=== PATIENT | male | born 1965 | race Caucasian/White ===

== ENCOUNTER 2017-04-09 10:28 | Inpatient (IN) ==
[2017-04-09 12:20] LABS: MANUAL DIFF NEEDED? NO
[2017-04-09 12:32] LABS: EOS# 0.12 X1000 (0.0-0.7); EOS% 0.9 % (0.0-10.0); HEMATOCRIT 42.6 % (42.0-52.0); HEMOGLOBIN 15.3 g/dL (14.0-18.0); IMM GRAN# 0.19 X1000 (0.0-0.04); IMM GRAN% 1.4 % (0.0-0.5); LYMPH# 4.21 X1000 (1.2-3.4); LYMPH% 31.2 % (20.5-51.1); MCH 29.7 PG (27-31); MCHC 35.9 g/dL (33-37); MCV 82.6 FL (81-99); MONO# 1.36 X1000 (0.11-0.59); MONO% 10.1 % (1.7-9.3); NEUT% 55.4 % (42.2-75.2); PLT 193 X1000 (130-400); RBC 5.16 XMIL (4.7-6.1)
[2017-04-09 12:47] LABS: AGAP 15; ALBUMIN 4.1 g/dL (3.5-5.0); ALKALINE PHOSPHATASE 126 U/L (32-122); BUN 16 mg/dL (8-22); CALCIUM 9.2 mg/dL (8.8-10.2); CHLORIDE 88 mmol/L (98-107); COSMO 269; GOT 54 U/L (10-34); GPT 120 U/L (10-44); POTASSIUM 4.4 mmol/L (3.5-5.1); SODIUM 128 mmol/L (136-145); TCO2 25 mmol/L (25-35); TOTAL BILIRUBIN 1.23 mg/dL (0.20-1.00); TOTAL PROTEIN 7.3 g/dL (6.3-8.3)
[2017-04-09] MEDS ORDERED: ASPIRIN PO ONE (13:31)
[2017-04-09] MEDS ORDERED: NS 1,000 ML IV ONE (13:31)
[2017-04-09 13:58] LABS: URINE CULTURE NEEDED? NO; URINE MICRO REVIEW NEEDED? NO; URINE SOURCE CLEAN CATCH
[2017-04-09 14:02] LABS: BILIRUBIN URINE NEGATIVE (NEGATIVE); BLOOD URINE NEGATIVE (NEGATIVE); COLOR YELLOW; GLUCOSE URINE >1000 mg/dL (NEGATIVE); LEUKOCYTES URINE NEGATIVE (NEGATIVE); NITRITE URINE NEGATIVE (NEGATIVE); PROTEIN URINE 30 mg/dL (NEGATIVE); TURBIDITY URINE CLEAR (CLEAR); UROBILINOGEN URINE 2 mg/dL (NORMAL)
[2017-04-09 14:03] LABS: UR EPITHELIAL CELLS <10 /HPF (<10); URINE BACTERIA NEGATIVE /HPF; URINE RBC <10 /HPF (<10); URINE WBC <10 /HPF (<10)
[2017-04-09 14:11] LABS: UR AMPHETAMINES QUAL NONE DETECTED (NONE DETECT); UR BARBITUATES QUAL NONE DETECTED (NONE DETECT); UR BENZODIAZEPIN QUAL NONE DETECTED (NONE DETECT); UR CANNABINOIDS QUAL NONE DETECTED (NONE DETECT); UR COCAINE QUAL NONE DETECTED (NONE DETECT); UR METHADONE QUAL NONE DETECTED (NONE DETECT); UR OPIATES QUAL NONE DETECTED (NONE DETECT); UR OXYCODONE QUAL NONE DETECTED (NONE DETECT); UR PCP QUAL NONE DETECTED (NONE DETECT)
--- NOTE | 2017-04-09 14:55 | PROVIDER DOCUMENTATION ---
This chart was entered by Irving Fritz Scribe, acting as scribe for Kevin Hebert MD. HPI-Syncope/Dizziness - General Chief Complaint: Dizziness Stated Complaint: DIZZINESS Time Seen by Provider: 04/09/17 10:54 Source: patient Allergies/Adverse Reactions: Patient Allergies Allergy/AdvReac Type Severity Reaction Status Date / Time No Known Allergies Allergy Verified 04/09/17 10:50 Home Medications: Home Medication List Medication Instructions Recorded Confirmed Last Taken Type Bisoprolol Fumarate/Hctz 1 each PO DAILY 04/04/17 04/09/17 04/08/17 07:00 History [Bisoprolol-Hctz 5-6.25 mg Tab] Glimepiride 4 mg PO BID CC 04/04/17 04/09/17 04/05/17 History Lisinopril/Hydrochlorothiazide 1 each PO DAILY 04/04/17 04/09/17 04/05/17 History [Lisinopril-Hctz 20-12.5 mg Tab] Lovastatin 40 mg PO DAILY 04/04/17 04/09/17 04/08/17 17:00 History Metformin [Glucophage] 1,000 mg PO BID 04/04/17 04/09/17 04/05/17 History - History of Present Illness-Syncope/Dizzy Nature of Presenting Problem: patient is a 52 yo M that presents with dizziness, headache, and off balance x 5 to 6 days. Denies fever/chills, cough, or n/v. recently dx with heat rash. No recent injury. No h/o AVM's or aneurysm. No difficulty seeing. Says that he has had difficulty concentrating. Has not had any difficulty swallowing and has not had any decrease in strength. No syncope or chest pain. Onset/Duration: reports: abrupt, 5 days ago, 6 days ago Timing: reports: still present - Dizziness Severity in ED: reports: mild, moderate Dizziness Related Current/Associated Symptoms: reports: lightheaded, dizzy, headache, off balance. denies: nausea/vomiting Modifying Factors: improves with: nothing Patient usually:: reports: walks without assistance Review of Systems - Adult - REVIEW OF SYSTEMS - ADULT Constitutional: reports: fatique. denies: chills, fever Eyes: reports: no symptoms reported Ears, Nose, Mouth & Throat: reports: hoarseness Cardiovascular: denies: chest pain, palpitations Respiratory: reports: no symptoms reported Gastrointestinal: denies: abdominal pain, nausea, vomiting Genitourinary: reports: no symptoms reported Musculoskeletal: denies: back pain, joint pain, neck pain Integumentary: reports: no symptoms reported Neurological: reports: dizziness/vertigo, headache/migraines, loss of balance Psychiatric: reports: no symptoms reported Endocrine: reports: no symptoms reported Hematologic/Lymphatic: reports: no symptoms reported Allergic/Immunologic: reports: no symptoms reported All Other Systems: Reviewed and Negative Past History - Adult - PAST MEDICAL HISTORY-ADULT Review of Records: reports: Old Records Reviewed, Nursing Assessment Review, Medications Reviewed Cardiovascular: reports: HTN, hyperlipidemia Endocrine/Immune: reports: Diabetes Diabetes controlled by:: Insulin Dependent - PRIOR SURGERIES/PROCEDURES Surgical/Procedure History: reports: orthopedic (extremity) - IMMUNIZATION STATUS Childhood Immunizations: See Nurse Assessment Flu Vaccine: See Nurse Assessment - FAMILY HISTORY Family History: reviewed, not pertinent - SOCIAL HISTORY Smoking: non-smoker Living Situation: family Physical Exam-General - PHYSICAL EXAM-ADULT Initial Vital Signs Reviewed: Yes - CONSTITUTIONAL General Appearance: alert, no apparent distress - EYES Eyes: PERRL/EOMI, pink conjunctivae - HEAD, EARS, NOSE, MOUTH & THROAT HENMT: normocephalic/atraumatic, moist mucous membranes, normal ENT inspection - NECK Neck: full range of motion, normal inspection - RESPIRATORY Respiratory: lungs clear, normal breath sounds, no respiratory distress, no accessory muscle use - CARDIOVASCULAR Cardiovascular: regular rate, rhythm, no edema - GASTROINTESTINAL (ABDOMEN) Abdominal Exam: normal bowel sounds, non tender, soft, no organomegaly - MUSCULOSKELETAL Extremity: normal range of motion, normal inspection - SKIN Integumentary: normal color, warm/dry - NEUROLOGIC Neurologic: 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, no motor/sensory deficits, other (NIHSS O , mild ataxia when ambulating.) - PSYCHIATRIC Psych/Mental Status: normal mood/affect, normal thought content, normal thought process, oriented x 3 Progress - PLAN OF CARE/RESULTS Progress/Plan/Lab Results: Vital Signs - 8 hr 04/09/17 10:46 Temperature 98.2 F Pulse Rate 69 Respiratory Rate 16 Blood Pressure 135/82 O2 Sat by Pulse Oximetry 100 Laboratory Results - last 24 hr 04/09/17 04/09/17 04/09/17 12:10 12:10 12:10 WBC 13.49 H RBC 5.16 Hgb 15.3 Hct 42.6 MCV 82.6 MCH 29.7 MCHC 35.9 RDW Std Deviation 12.0 Plt Count 193 MPV 12.0 H Immature Gran % (Auto) 1.4 H Neut % (Auto) 55.4 Lymph % (Auto) 31.2 [place] % (Auto) 10.1 H Eos % (Auto) 0.9 Baso % (Auto) 1.0 H Immature Gran # (Auto) 0.19 H Neut # (Auto) 7.47 H Lymph # (Auto) 4.21 H [place] # (Auto) 1.36 H Eos # (Auto) 0.12 Baso # (Auto) 0.14 Sodium 128 L Potassium 4.4 Chloride 88 L Carbon Dioxide 25 Anion Gap 15 BUN 16 Creatinine 1.1 Estimated GFR/1.73 m2 > 60 BUN/Creatinine Ratio 15 Glucose 289 H Calculated Osmolality 269 Calcium 9.2 Total Bilirubin 1.23 H AST 54 H ALT 120 H Alkaline Phosphatase 126 H Troponin T < 0.010 Total Protein 7.3 Albumin 4.1 Globulin 3.2 Albumin/Globulin Ratio 1.3 Orders Category Date Time Status HEAD W/O CONTRAST [CT] Stat Exams 04/09/17 11:58 Completed HEAD W/WO CONTRAST [CT] Routine Exams 04/09/17 Taken BLOOD CULTURE [BLDCUL] Stat Lab 04/09/17 13:41 Uncollected CBC WITH ELECTRONIC DIFF [HEME] Stat Lab 04/09/17 12:10 Completed COMPREHENSIVE METABOLIC PANEL [CHEM] Stat Lab 04/09/17 12:10 Completed TROPONIN T Stat Lab 04/09/17 12:[address] W/POSS RFLX CULT [URINALYSIS] Stat Lab 04/09/17 13:49 Ordered URINE DRUG SCREEN Stat Lab 04/09/17 13:49 Ordered 0.9% Sodium Chloride Inj [Ns] 1,000 ml Med 04/09/17 13:31 Active IV 150 mls/hr Aspirin Med 04/09/17 13:31 Discontinued 325 mg PO NOW ONE Jose-Mariola MARTI with hospitalist called [id number] returned called, hospitalist will like patient sent to [facility] Result Diagrams: 04/09/17 12:10 04/09/17 12:10 - EKG 1 Time of EKG reading by physician:: 10:40 EKG Read and Signed by:: Kevin Hebert EKG Interpretation (*Must complete 3 of following elements*): Normal Rate: 76 Rhythm: NSR [place]: normal QRS: normal ID Interval: normal ST Wave: normal - CT/MRI 1 CT Study: Head Impression: Abnormal CT Results: 4cm irregular area in R occipital lobe 2 CT Study: Head (w contrast) Impression: Abnormal CT Results: subacute infarct or resolving hematoma - CONSULTS/PCP/HOSPITALIST Notification #1 *Consult/PCP/Hospitalist*: Elvira and Dr. Kapoor Consult Disposition: other (Made aware of reason for consult and wanted [facility] Neuro to view image and help determine patient disposition. Spoke again to Elvira (physician community development specialist) 2:42 pm and made aware that I spoke with Neurosurgeon at [facility].) #2 Consult: Spoke with Dr. Moralez (Neurosurgeon) Time Discussed: 14:34 Consult Disposition: other (Dr. Moralez viewed CT brain images and agreed that lesion is and infarct and says that patient was able to be treated at [facility], agreed with ASA therapy.) Departure - Departure Date of Disposition Decision: 04/09/17 Time of Disposition Decision: 14:35 DIAGNOSIS: Acute cerebrovascular accident, Hyponatremia, Ataxia Disposition: HOME 01 Certified Medical Emergency: Emergent Condition: Stable Referrals and Follow-Ups: None,PCP [Clinical Support] - - Critical Care Note This patient required my direct & personal management of CC.: No This chart was documented by the indicated scribe, (Irving Fritz, Nila) and accurately reflects the services I performed and decisions made by me, Kevin Hebert MD, as attested by the provider's signature.
[2017-04-09] MEDS ORDERED: ZOFRAN IV PRN ×2 (15:49)
[2017-04-09] MEDS ORDERED: TYLENOL PO PRN (15:49)
[2017-04-09] MEDS: HUMULIN R SUBQ SCH ×2 (16:24→21:13)
[2017-04-09] MEDS: AMARYL PO SCH (16:24)
--- NOTE | 2017-04-09 16:38 | HISTORY AND PHYSICAL ---
PRIMARY CARE PROVIDER: Dr. Michael. Bradshaw. CHIEF COMPLAINT: Unsteady gait, dizziness, lethargy. HISTORY OF PRESENT ILLNESS: Mr. Rogers is a 52-year-old, male, who presents to the ED today with complaints of dizziness and unstable gait. He was last seen here on 04/04/2017 with also dizziness, complaint of fever, body aches and chills, and was initially told to take ibuprofen and go home. He reports that he obviously did not get better and went to [facility] first today for the same symptoms and was told to come here. In the ER, he had a CT of the head done which revealed a 4 cm irregular hypodense area in the right middle lobe which radiologists confirmed that it could be a recent infarct or recent hematoma. The patient's sodium level was found to be 128. He denied any nausea, vomiting, diarrhea, any more fever, body aches or chills. No numbness or tingling. He did not report any other headache, redness of his head 02/13. ER doctor did consult Dr. Toure at [facility], who looked at CT and suggested it was a subacute infarct, ischemic versus hematoma, and recommended aspirin therapy. He was given aspirin 325 mg p.o. in the ER. His UDS and UA were negative also in the ER. Upon physical assessment he was found to have mild ataxia; nystagmus; and left heminopsia. MRI scheduled tomorrow. PAST MEDICAL HISTORY: 1. Diabetes Mellitus Type II 2. Hypertension. 3. Hyperlipidemia. SURGICAL HISTORY: None. 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 He denies any alcohol and tobacco use or illicit drug use. FAMILY HISTORY: Mother with cancer; father with hemorrhagic stroke; sister with [place] and stroke; brother with cancer. REVIEW OF SYSTEMS: 12-point review of systems complaints as mentioned above in HPI. ALLERGIES: No known drug allergies. HOME MEDICATIONS: Metformin 1000 mg p.o. b.i.d., lovastatin 40 mg p.o. daily, lisinopril/hydrochlorothiazide 20/12.5, 1 tab p.o. daily, Amaryl 4 mg p.o. b.i.d., bisoprolol/hydrochlorothiazide 5/6.25 one tablet p.o. daily. PHYSICAL EXAMINATION: VITAL SIGNS: BP 135/82, T 98.2 degrees temp, 69 heart rate, 16 breaths on 100% room air. GENERAL: Mr. Rogers is a 52-year-old, male. Appears well- nourished. Can answer questions appropriately. HEENT: Atraumatic, normocephalic. Pupils equal, round, reactive to light. EOMS intact. Mild nystagmus noted. Mucous membranes are moist. NECK: Supple. No lymphadenopathy. Trachea midline. No JVD noted. CV: S1, S2. No carotid bruits. Regular rate and rhythm. No murmur, gallop or rub noted. RESPIRATORY: Lung sounds clear and equal throughout. Equal chest excursion. Nonlabored. No accessory muscle use. GI: Soft, nontender, nondistended in all 4 quadrants. Bowel sounds auscultated in all 4 quadrants. No abdominal bruits. NEURO: On exam, the patient was found to have mild hemianopsia on his left side. Also with his gait he was found to have mild ataxia. Alert, Oriented x 4. Followed commands. Sensation intact. Mild Ataxia. Speech clear. Face symmetric. MUSCULOSKELETAL: Muscle strength is equal throughout; 5/5. No deficit is noted there. EXTREMITIES: Dorsalis pedis and radial pulses +2. No clubbing, cyanosis, edema noted. SKIN: Warm, dry, intact. Body rash; possible petechia. No bruises or diaphoresis noted. LABS: White blood cell count 13, hemoglobin 15, hematocrit 42, platelets 193. Sodium 128, potassium 4.4, chloride 88, bicarbonate 25, BUN 16, hematocrit 51.1, glucose 289. IMAGIN. CT of the head with IV contrast revealed a 4 cm subacute infarct and ischemic versus hemorrhagic. 2. EKG was also done: Normal sinus rhythm, rate 76, QTc was 420. ASSESSMENT AND PLAN: 1. Right subacute occipital lobe infarct, ischemic versus hematoma. Magnetic resonance imaging and magnetic resonance angiogram of the brain and neck ordered. Dr. Dueñas has been consulted. The patient has risk factors that consist of diabetes, hypertension and a family history of cerebrovascular accident. 2. Hyponatremia. Sodium in the emergency room was 128. He was started on normal saline at 150 mL an hour. We will continue to monitor. 3. Hyperglycemia with blood sugar 289. We will order an A1c and continue his home medication regimen of metformin and Amaryl. 4. Transaminitis and hyperbilirubinemia secondary to dehydration possibly. Patient is receiving intravenous fluids. We will continue to monitor. 5. Deep vein thrombosis prophylaxis: Sequential compression devices. 6. Body rash noted. Inflammatory markers ordered. Dictated by KAIA Espinoza for Luis Caputo MD cc: KAIA Espinoza MD Michael Putman, MD pt examined, agree with above APENOT MTDD
[2017-04-09] MEDS ORDERED: PNEUMOVAX 23 IM ONE (18:00)
[2017-04-09] MEDS: GLUCOPHAGE PO SCH (21:13)
[2017-04-10 06:40] LABS: BASO% 0.5 % (0.0-0.8); EOS# 0.14 X1000 (0.0-0.7); EOS% 0.9 % (0.0-10.0); HEMATOCRIT 41.4 % (42.0-52.0); HEMOGLOBIN 14.5 g/dL (14.0-18.0); IMM GRAN# 0.16 X1000 (0.0-0.04); LYMPH# 4.26 X1000 (1.2-3.4); MANUAL DIFF NEEDED? YES; MCH 29.5 PG (27-31); MCV 84.1 FL (81-99); MONO% 8.9 % (1.7-9.3); NEUT% 61.7 % (42.2-75.2); PLT 213 X1000 (130-400); RBC 4.92 XMIL (4.7-6.1)
[2017-04-10 06:44] LABS: INR 1.06; PROTIME 11.2 Seconds (9.2-11.7); PTT 26.4 Seconds (22.0-36.0)
[2017-04-10 07:10] LABS: HEMOGLOBIN A1C 7.7 % (4.8-6.0)
[2017-04-10 07:12] LABS: FREE T4 1.47 ng/dL (0.93-1.70)
[2017-04-10 07:14] LABS: BANDS 1 % (0-1); EOS 1 % (1-10); LYMPHS 11 % (21-51); MONO 5 % (1-9)
[2017-04-10 07:19] LABS: AGAP 14; ALBUMIN 3.9 g/dL (3.5-5.0); ALKALINE PHOSPHATASE 123 U/L (32-122); BUN 14 mg/dL (8-22); CALCIUM 8.8 mg/dL (8.8-10.2); CHLORIDE 98 mmol/L (98-107); COSMO 274; GOT 45 U/L (10-34); GPT 104 U/L (10-44); POTASSIUM 4.9 mmol/L (3.5-5.1); SODIUM 136 mmol/L (136-145); TCO2 24 mmol/L (25-35); TOTAL BILIRUBIN 1.11 mg/dL (0.20-1.00); TOTAL PROTEIN 6.7 g/dL (6.3-8.3)
--- NOTE | 2017-04-10 07:20 | EKG Report ---
Test Performed on : 04/09/2017 10:40:44 AM Test Reason : No Order in [employer] Blood Pressure : / mmHG Vent. Rate : 076 BPM Atrial Rate : 076 BPM P-R Int : 126 ms QRS Dur : 086 ms QT Int : 420 ms P-R-T Axes : 033 012 039 degrees QTc Int : 472 ms Normal sinus rhythm. Normal ECG No previous ECGs available Unconfirmed Result
[2017-04-10] MEDS: HUMULIN R SUBQ SCH ×4 (09:00→21:55)
--- NOTE | 2017-04-10 09:36 | Diag Imaging Result Doc PS360 ---
MRI BRAIN W W/O CONTRAST - 04/10/2017 INDICATION: stroke COMPARISON: Head CT 04/09/2017 FINDINGS: There is a large area of restricted diffusion at the right posterior-medial occipital lobe, in the posterior cerebral artery territory. This exhibits heterogeneous hyperintensity, and some mass enlargement with effacement of sulci and mild deviation of the right side of the splenium of the corpus callosum, anteriorly. No abnormal contrast enhancement. No evidence of hemorrhage. There is a second, tiny area of restricted diffusion in the left cerebellar hemisphere. This is in a linear fashion. This does appear to be true restricted diffusion. This also does exhibit some minimal T2 and FLAIR hyperintensity. IMPRESSION: 1. Large, recent stroke in the right posterior cerebral artery territory. 2. Possible tiny accessory stroke in the left cerebellar hemisphere, also recent. 3. The patient's hospital physician was immediately paged with the results. Electronically signed by Ottoniel Kothari 04/10/2017 9:34 AM
[2017-04-10] MEDS: ASPIRIN PO SCH (09:57)
[2017-04-10] MEDS: AMARYL PO SCH ×2 (09:58→16:56)
[2017-04-10] MEDS: MEVACOR PO SCH (09:58)
[2017-04-10] MEDS: GLUCOPHAGE PO SCH ×2 (09:58→21:53)
--- NOTE | 2017-04-10 10:00 | Diag Imaging Result Doc PS360 ---
ANGIOGRAM/HEAD - 04/10/2017 INDICATION: cva TECHNIQUE: Axial CT images were obtained after administering intravenous contrast. Three-dimensional angiographic images were generated. A CT dose reduction protocol was used. COMPARISON: Head CT and MRI previously FINDINGS: There is a moderately large, very densely calcified focal plaque at the right vertebral artery just inside of the foramen magnum. Otherwise the vertebrobasilar artery system is normal. The right vertebral artery is actually dominant. The posterior cerebral arteries are patent with normal anatomy bilaterally. There is a complete [place]. The internal carotid arteries are grossly normal bilaterally, with the exception of a few small calcified plaques at the supraclinoid arteries bilaterally. The anterior and middle cerebral arteries are patent bilaterally. There are no unusual caliber changes to suggest vasculitis of the intracranial artery systems. IMPRESSION: There is a relatively large, densely calcified focal plaque at the right vertebral artery just inside of the foramen magnum. Otherwise, the exam is normal. Electronically signed by Ottoniel Kothari 04/10/2017 9:58 AM
--- NOTE | 2017-04-10 15:11 | CONSULTATION ---
DATE OF CONSULTATION: 04/10/2017 ROOM 379A HISTORY OF PRESENT ILLNESS: Mr. Rogers is 52 years old and there is MRI and CT evidence of a right occipital lesion consistent with subacute infarction. History from the patient is that he never had a stroke before. He felt bad about 8 days ago and he cannot describe that more precisely. He spent some of the day in bed. He had some cold sweats a few nights. He presented to the emergency room and believes he was told at one point temperature was 103 degrees and later 101. About 6 days ago he noticed some bumps over his limbs. A few days ago he developed tension discomfort across the forehead, not as bad as headaches he has had in the past. He reports no specific vision disturbance and he specifically denies loss of visual field. He has not noticed focal weakness or numbness in the limbs. He believes there was never unconsciousness or altered awareness. Workup includes CT scan of the head followed by brain MRI reported to show restricted diffusion in the right posteromedial occipital area. CT angiogram showed right vertebral plaque. Labs showed WBC count 13,000 and then 15,000 in the last few days. Blood sugars were 289 a few days ago and 133 today. He has mildly elevated liver enzymes. Urine drug screen was all negative. Sedimentation rate was 21. He has been afebrile. His systolic blood pressures were 120s to 140s yesterday, 100s to 120s today. He has past history of hypertension and diabetes mellitus. He takes his medicines regularly, by his report. He has not been taking antiplatelet medicine. He denies illicit drug use and he denies alcohol use. He reports an episode in his 20s when he lost 40 pounds in a short period of time but he does not believe a specific diagnosis was made then. PHYSICAL EXAMINATION: On examination, he is awake, alert, attentive, oriented, appropriate. Speech is not dysarthric. Language function is intact. Memory is good. Head and neck are unremarkable. There is no meningismus. He has left inferior quadrantanopsia. He made some mistakes counting fingers in the left superior quadrant. He has full right visual field. Extraocular movements are full. Facial sensation and motility are normal and symmetric. Gag is intact. Tongue is midline. Hearing is good. Shoulder shrug is equal. Strength is normal in the arms and legs. He did well on [id number] and [id number] testing bilaterally. He reports good pinprick and light touch appreciation symmetrically over the limbs. Proprioception is good at the great toe MTP joint bilaterally. Reflexes are 2+ at the wrists, 2+ at the knees, trace at the ankles. Plantar response is silent bilaterally. I did not test his gait. IMPRESSION: 1. Isolated left inferior quadrantanopsia. This is consistent with the right occipital lesion noted on imaging. He has risk factors for cerebrovascular ischemic problems including dyslipidemia, diabetes mellitus, hypertension. Although he is a relatively young man to have a stroke, that seems most likely the explanation for this event. 2. A report presenting with dizziness, not feeling well, fever a week ago is noted. That was accompanied by skin rash. He has been afebrile here and rash is resolving, by his report. Explanation for this is not clear to me. I do not think this has a primary [employer]AR[employer]ER correlation. However, I will order a PPD. Further plans will depend on his clinical course. 3. I would consider carotid imaging, not urgent. After workup, if the only finding is the right vertebral plaque noted on brain CTA today, I do not think we will have to change plans. I would continue daily aspirin, continue treating blood sugar and lipids aggressively, continue treating blood pressure cautiously or not at all. Thank you for asking me to see Mr. Rogers. cc: MD NANCI Dee III
[2017-04-10] MEDS ORDERED: TUBERSOL ID ONE (16:46)
--- NOTE | 2017-04-10 18:47 | Carotid Study ---
DATE: 04/09/2017 PROCEDURE: Carotid duplex imaging. REFERRING PHYSICIAN: Luis Caputo MD INTERPRETING PHYSICIAN: Carlos Smallwood MD TECH: [place] INDICATIONS: The patient has had a TIA. OBSERVED DATA RIGHT LEFT Brachial Blood Pressure Carotid Pulse Bruits: Carotid/Sub DIAGRAM OF ULTRASOUND IMAGING R L RIGHT INT EXT INT EXT LEFT Reilly (cm/s) Reilly (cm/s) Subclavian 94/0 Subclavian 112/0 CCA Proximal 105/20 CCA Proximal 82/12 CCA Distal 97/19 CCA Distal 79/17 Bulb 64/14 Bulb 67/12 ICA Proximal 49/15 ICA Proximal 55/14 ICA Mid 74/25 ICA Mid 66/19 ICA Distal 66/25 ICA Distal 80/26 ECA 103/12 ECA 91/8 Vertebral Antegrade, 52/16 Vertebral Antegrade, 37/9 ICA/CCA Ratio 0.7 ICA/CCA Ratio 1.0 % Stenosis 0-39 % Stenosis 0-39 FINDINGS: Minimal plaque noted on the right. PHYSICIAN INTERPRETATION: Minimal plaque in the right bulb. No plaque is noted on the left. No significant stenosis is present. There is antegrade vertebral flow bilaterally. cc: MD Luis Wild MD
[2017-04-11] MEDS: HUMULIN R SUBQ SCH ×3 (08:03→16:41)
[2017-04-11] MEDS: ASPIRIN PO SCH (08:36)
[2017-04-11] MEDS: GLUCOPHAGE PO SCH (08:36)
[2017-04-11] MEDS: MEVACOR PO SCH (08:36)
[2017-04-11] MEDS: AMARYL PO SCH ×2 (08:36→16:40)
--- NOTE | 2017-04-11 14:14 | PROGRESS NOTE ---
DATE: 04/11/2017 SUBJECTIVE: Mr. Rogers reports he is feeling better. He does not have any specific complaints. OBJECTIVE: On exam, he continues to have left inferior quadrantanopsia. His finger counting in the left superior field may be a little bit more consistent today than yesterday. There is no new focal neurologic finding. ASSESSMENT AND PLAN: Again, I encouraged him to be aggressive with management of his blood sugar, lipids, blood pressure. We might consider Ophthalmology evaluation and visual field testing electively. I do not have any new suggestion today. His carotid ultrasound showed no significant carotid or vertebral stenosis. The CT angiogram had raised question of right vertebral plaque, but I do not believe there is hemodynamically significant stenosis there, so I do not think we need to alter plans now. I believe antiplatelet management will be sufficient, in addition to attention to his other risk factors as above. Thanks for asking me to see Mr. Rogers. cc: Archana Dueñas III, MD
[2017-04-11 14:26] VITALS: BP 140/63
--- NOTE | 2017-04-11 16:09 | DISCHARGE SUMMARY ---
ADMISSION DATE: 04/09/2017 DISCHARGE DATE: 04/11/2017 DISCHARGE DIAGNOSES: 1. Ischemic stroke of the right occipital lobe. Vertebral artery stenosis with plaque. Left cerebellar hemisphere stroke core. 2. Hypertension. 3. Diabetes. CONSULTATIONS: Neurology. HOSPITAL COURSE: Briefly, this is a 52-year-old gentleman who came in from home with complaints of ataxia and weakness. Upon visual confrontation, though, he did have a field cut on the left side which was noted on admission by the primary team. He had a 4 cm irregular hypodense area with concern over possible stroke and he was admitted for that. The rest of the workup was negative. The patient underwent MRI and evaluation per Dr. Dueñas. MRI confirmed a stroke in the right posterior cerebral artery distribution and a small left cerebellar stroke with concern over possible embolization. CT angiogram of the head vessels was negative for any major obstruction, except that he had a focal plaque in the right vertebral artery. Dr. Dueñas evaluated the patient on 04/10/2017 and recommended current treatment, aspirin, blood sugar control, eventual blood pressure control. He did order a PPD because the patient had an abnormal rash while he was here, as well, but there was no gross evidence of PPD. The patient clinically stabilized. On 04/11/2017, he was felt stable for discharge. Carotid was unremarkable. Recommended at anti-platelet therapy and Ophthalmology evaluation. DISCHARGE MEDICATIONS: Aspirin 81 daily, Lipitor 40 daily, glimepiride 4 b.i.d., lisinopril/hydrochlorothiazide 20/12.5 daily, metformin 1 g b.i.d. TIME SPENT: Thirty-five minute discharge. DISCHARGE INSTRUCTIONS: He is to return for any acute neurological change. cc: MD Jose Mcnulty MD Eston G. Norwood III, MD
--- NOTE | 2017-04-12 04:15 | ECHO REPORT ---
ORDER DATE: 04/10/2017 MEASUREMENTS: Left ventricular end-diastolic diameter 4.4. End systolic diameter 3.2. Septal thickness 1.1. Posterior wall thickness 1.1. Left atrium 3.9. Aortic root 3.3. SUMMARY: 1. Fair quality study. 2. Aortic valve is trileaflet and opens normally on 2-dimensional images. There is mild aortic regurgitation. The aortic root is normal in size at the sinus of Valsalva level. Sinotubular junction is effaced and there is mild enlargement of proximal ascending aorta, measuring 3.4 cm. Mitral, tricuspid and pulmonic valves are without structural abnormality with trace mitral regurgitation and trace tricuspid regurgitation. The estimated systolic PA pressure by Doppler is 30 mmHg. 3. Normal left ventricular dimensions demonstrated. Estimated left ejection fraction is 55%. No regional wall motion abnormalities are evident. Doppler suggests grade 1 left ventricular diastolic dysfunction. Left atrium is upper normal in size. Right atrium and right ventricle are normal in size with normal right ventricular systolic function. 4. Interatrial septum appears somewhat mobile. Intravenous agitated saline contrast study (bubble study) was performed and demonstrated presence of what appears to be a very prominent eustachian valve that limits the agitated saline contrast bubbles injected in the left arm to the upper portion of the right atrium with just a small amount reaching the interatrial septum. There is no evidence of ddyeo-sw-wayy interatrial shunting. 5. No pericardial effusion. 6. Sinus rhythm during study. CONCLUSIONS: 1. Mild aortic regurgitation. 2. Trace tricuspid regurgitation with estimated systolic pulmonary artery pressure of 30 mmHg. 3. Mild enlargement of proximal ascending aorta with effacement of the sinotubular junction. 4. Normal left ventricular systolic function without wall motion abnormality evident. 5. Grade 1 left ventricular diastolic dysfunction. 6. Somewhat mobile interatrial septum without evidence of interatrial shunting on intravenous agitated saline study. Prominent eustachian valve demonstrated. cc: MD Elvira Subramanian CRNP
--- NOTE | 2017-04-12 11:49 | Diag Imaging Result Doc PS360 ---
EXAM: HEAD WITHOUT CONTRAST HISTORY: DIZZINESS WITH GAIT DIFFICULTY TECHNIQUE: Dose reduction protocol COMPARISON: None. FINDINGS: No parenchymal hemorrhage. No epidural or subdural hematoma. No subarachnoid hemorrhage. There is an irregular hypodense area in the right occipital lobe measuring 2.8 x 4.0 cm. No midline shift. No hydrocephalus. No sinus opacification. IMPRESSION: 4 cm irregular hypodense area in the right occipital lobe. This could represent a resolving hematoma, recent infarct, or mass. Further imaging with contrast recommended. A preliminary report was given at 12:34 PM on 04/09/2017. Electronically signed by Pascual Shepherd 04/12/2017 11:47 AM
--- NOTE | 2017-04-12 11:52 | Diag Imaging Result Doc PS360 ---
EXAM: HEAD W/CONTRAST HISTORY: DIZZIENESS WITH GAIT DIFFICULTY TECHNIQUE: Dose reduction protocol COMPARISON: Compared to CT without contrast performed earlier FINDINGS: Postcontrast images performed. No definite enhancement occurs within the irregular area within the right occipital lobe. No other enhancing lesion on the postcontrast images. IMPRESSION: Findings likely due to a subacute infarct or resolving hematoma. A preliminary report was given at 12:54 PM on 04/09/2017. Electronically signed by Pascual Shepherd 04/12/2017 11:50 AM
== END 2017-04-11 17:28 | disposition home or self-care (01) ==
LOC: ED 10:28 → 3N 15:12
PROVIDERS: ATTEND Internal Medicine